=== PATIENT | male | born 1970 | race Caucasian/White ===

== ENCOUNTER 2023-07-10 13:36 | Inpatient (IN) | payer BC ==
[2023-07-10] MEDS ORDERED: HYDROmorphone 0.5 MG/0.5 ML Syringe IVPUSH ONE (14:14)
[2023-07-10] MEDS ORDERED: Sodium Chloride 0.9% 10 ML Syringe FLUSH PRN (14:14)
[2023-07-10 14:32] LABS: BASOPHILS ABSOLUTE AUTO 0.1 K/mm3 (0.0-0.2); BASOPHILS PERCENT AUTO 0.7 % (0.0-1.0); EOSINOPHILS ABSOLUTE AUTO 0.1 K/mm3 (0.0-0.4); EOSINOPHILS PERCENT AUTO 1.2 % (0.0-6.0); HEMATOCRIT 50.7 % (42.0-52.0); HEMOGLOBIN 17.4 gm/dl (14.0-18.0); IMMATURE GRAN ABSOLUTE AUTO 0.04 K/mm3 (0.00-0.05); IMMATURE GRAN PERCENT AUTO 0.5 % (0.0-0.4); LYMPHOCYTES ABSOLUTE AUTO 1.2 K/mm3 (1.0-4.8); LYMPHOCYTES PERCENT AUTO 14.6 % (24.0-44.0); MEAN CORPUSCULAR HEMOGLOBIN 30.6 pg (28.0-32.0); MEAN CORPUSCULAR HGB CONC 34.3 g/dl (32.0-36.0); MEAN CORPUSCULAR VOLUME 89.1 fl (83.0-99.0); MEAN PLATELET VOLUME 9.1 fl (9.4-12.4); MONOCYTES ABSOLUTE AUTO 0.9 K/mm3 (0.0-0.8); MONOCYTES PERCENT AUTO 10.6 % (0.0-8.0); NEUTROPHILS ABSOLUTE AUTO 6.2 K/mm3 (1.8-7.7); NEUTROPHILS PERCENT AUTO 72.4 % (41.0-71.0); PLATELET COUNT,PLT 248 K/mm3 (150-400); RED BLOOD CELL COUNT 5.69 M/mm3 (4.52-5.90)
[2023-07-10 14:53] LABS: ALBUMIN 3.9 g/dl (3.4-5.0); ANION GAP 14.1 (5-15); BUN/CREATININE RATIO 9.2 (14-18); C-REACTIVE PROTEIN 0.7 mg/dL (<1.0); CALCIUM 9.5 mg/dL (8.5-10.1); CREATININE 1.3 mg/dL (0.7-1.3); EST CRCL DRUG DOSING (CG) 78.16 mL/min; POTASSIUM,K 4.1 mEq/L (3.5-5.1); PROTEIN TOTAL,TP 7.9 g/dl (6.4-8.2)
[2023-07-10] MEDS ORDERED: Ondansetron 8 MG in Sodium Chloride 0.9% 50 ML IV PRN (15:56)
[2023-07-10] MEDS ORDERED: Lidocaine 1% 30 ML SDV ONE (15:59)
[2023-07-10] MEDS ORDERED: ceFAZolin 2 GM in Sodium Chloride 0.9% 50 ML IV SCH (16:00)
[2023-07-10] MEDS: Lactated Ringers 1,000 ML IV SCH ×2 (16:10→22:09)
[2023-07-10] MEDS ORDERED: Propofol 200 MG/20 ML SDV ONE (16:19)
[2023-07-10] MEDS ORDERED: fentaNYL 100 MCG/2 ML SDV ONE (16:19)
[2023-07-10] MEDS ORDERED: Lidocaine 1% 5 ML VIAL ONE (16:19)
[2023-07-10] MEDS ORDERED: Midazolam 1 MG/ML 2 ML SDV ONE ×2 (16:19→16:53)
[2023-07-10] MEDS ORDERED: Metoclopramide 10 MG/2 ML SDV ONE (16:36)
[2023-07-10] MEDS ORDERED: ceFAZolin 2 GM Vial ONE (16:36)
[2023-07-10] MEDS: Bupivacaine 0.5%/EPINEPHrine 1:200,000 50 ML MDV ONE (17:04)
[2023-07-10] MEDS ORDERED: Ketorolac 30 MG/ML SDV ONE (17:14)
[2023-07-10] MEDS ORDERED: HYDROmorphone 0.5 MG/0.5 ML Syringe IVPUSH PRN (17:32)
[2023-07-10] MEDS ORDERED: Ondansetron 4 MG/2 ML SDV IVPUSH PRN (17:32)
[2023-07-10] MEDS ORDERED: fentaNYL 100 MCG/2 ML SDV IVPUSH PRN (17:32)
[2023-07-10] MEDS ORDERED: Aspirin 325 MG Tab.EC PO PRN (21:53)
[2023-07-10] MEDS: ceFAZolin 2 GM in Sodium Chloride 0.9% 50 ML IV SCH (22:10)
[2023-07-10] MEDS: HYDROmorphone 0.5 MG/0.5 ML Syringe IVPUSH PRN (22:12)
[2023-07-10] MEDS: Acetaminophen 325 MG Tab PO PRN (22:16)
[2023-07-11] MEDS: HYDROmorphone 0.5 MG/0.5 ML Syringe IVPUSH PRN ×7 (00:56→23:37)
[2023-07-11] MEDS: Ketorolac 30 MG/ML SDV IVPUSH PRN ×2 (04:29→10:57)
[2023-07-11] MEDS: Acetaminophen 325 MG Tab PO PRN ×3 (04:29→19:05)
[2023-07-11] MEDS: ceFAZolin 2 GM in Sodium Chloride 0.9% 50 ML IV SCH ×2 (05:08→14:31)
[2023-07-11 07:25] LABS: BASOPHILS ABSOLUTE AUTO 0.1 K/mm3 (0.0-0.2); BASOPHILS PERCENT AUTO 0.5 % (0.0-1.0); EOSINOPHILS PERCENT AUTO 0.3 % (0.0-6.0); HEMATOCRIT 48.2 % (42.0-52.0); HEMOGLOBIN 16.5 gm/dl (14.0-18.0); IMMATURE GRAN ABSOLUTE AUTO 0.05 K/mm3 (0.00-0.05); IMMATURE GRAN PERCENT AUTO 0.4 % (0.0-0.4); LYMPHOCYTES ABSOLUTE AUTO 0.7 K/mm3 (1.0-4.8); LYMPHOCYTES PERCENT AUTO 6.1 % (24.0-44.0); MEAN CORPUSCULAR HEMOGLOBIN 30.6 pg (28.0-32.0); MEAN CORPUSCULAR HGB CONC 34.2 g/dl (32.0-36.0); MEAN CORPUSCULAR VOLUME 89.4 fl (83.0-99.0); MONOCYTES ABSOLUTE AUTO 0.7 K/mm3 (0.0-0.8); MONOCYTES PERCENT AUTO 5.8 % (0.0-8.0); NEUTROPHILS ABSOLUTE AUTO 10.1 K/mm3 (1.8-7.7); NEUTROPHILS PERCENT AUTO 86.9 % (41.0-71.0); PLATELET COUNT,PLT 218 K/mm3 (150-400); RED BLOOD CELL COUNT 5.39 M/mm3 (4.52-5.90); WHITE BLOOD CELL COUNT,WBC 11.68 K/mm3 (3.9-11.3)
[2023-07-11] MEDS ORDERED: Iopamidol 612 MG/ML 100 ML Bottle IVPUSH ONE (07:38)
[2023-07-11] MEDS ORDERED: Bupivacaine 0.5%/EPINEPHrine 1:200,000 50 ML MDV ONE (16:06)
[2023-07-11] MEDS ORDERED: Bupivacaine 0.25%/EPINEPHrine 1:200,000 30 ML SDV ONE (16:07)
[2023-07-11] MEDS ORDERED: Lidocaine 1% 6 ML ONE (16:31)
[2023-07-11] MEDS ORDERED: HYDROmorphone 0.5 MG/0.5 ML Syringe ONE (16:31)
[2023-07-11] MEDS ORDERED: Propofol 200 MG/20 ML SDV ONE (16:31)
[2023-07-11] MEDS ORDERED: fentaNYL 250 MCG/5 ML SDV ONE (16:32)
[2023-07-11] MEDS ORDERED: Midazolam 1 MG/ML 2 ML SDV ONE (16:34)
[2023-07-11] MEDS ORDERED: Rocuronium 50 MG/5 ML Vial ONE (16:37)
[2023-07-11] MEDS ORDERED: Succinylcholine 200 MG/10 ML MDV ONE (16:37)
[2023-07-11] MEDS ORDERED: Lactated Ringers 1,000 ML IV ONE (17:00)
[2023-07-11] MEDS ORDERED: ceFAZolin 2 GM Vial ONE (17:02)
[2023-07-11] MEDS: Bupivacaine 0.5%/EPINEPHrine 1:200,000 50 ML MDV ONE (17:08)
[2023-07-11] MEDS ORDERED: fentaNYL 100 MCG/2 ML SDV IVPUSH PRN (17:28)
[2023-07-11] MEDS ORDERED: HYDROmorphone 0.5 MG/0.5 ML Syringe IVPUSH PRN (17:28)
[2023-07-11] MEDS ORDERED: Ondansetron 4 MG/2 ML SDV ONE (17:32)
[2023-07-11] MEDS ORDERED: Dexmedetomidine 200 MCG/2 ML SDV ONE (17:39)
[2023-07-11] MEDS: Lactated Ringers 1,000 ML IV SCH ×2 (17:55→19:45)
[2023-07-11] MEDS ORDERED: diphenhydrAMINE 50 MG/ML SDV IVPUSH ONE (18:18)
[2023-07-11] MEDS ORDERED: Acetaminophen 650 MG Supp ONE (18:38)
[2023-07-11] MEDS ORDERED: Promethazine 25 MG in Sodium Chloride 0.9% 50 ML IV ONE (18:40)
[2023-07-11 18:49] LABS: BASOPHILS PERCENT AUTO 0.4 % (0.0-1.0); HEMATOCRIT 54.7 % (42.0-52.0); IMMATURE GRAN ABSOLUTE AUTO 0.04 K/mm3 (0.00-0.05); IMMATURE GRAN PERCENT AUTO 0.4 % (0.0-0.4); LYMPHOCYTES ABSOLUTE AUTO 1.1 K/mm3 (1.0-4.8); LYMPHOCYTES PERCENT AUTO 10.9 % (24.0-44.0); MEAN CORPUSCULAR HEMOGLOBIN 30.7 pg (28.0-32.0); MEAN CORPUSCULAR HGB CONC 33.6 g/dl (32.0-36.0); MEAN CORPUSCULAR VOLUME 91.3 fl (83.0-99.0); MONOCYTES ABSOLUTE AUTO 0.1 K/mm3 (0.0-0.8); MONOCYTES PERCENT AUTO 1.1 % (0.0-8.0); NEUTROPHILS ABSOLUTE AUTO 9.1 K/mm3 (1.8-7.7); NEUTROPHILS PERCENT AUTO 87.2 % (41.0-71.0); PLATELET COUNT,PLT 237 K/mm3 (150-400); RED BLOOD CELL COUNT 5.99 M/mm3 (4.52-5.90); WHITE BLOOD CELL COUNT,WBC 10.48 K/mm3 (3.9-11.3)
[2023-07-11 18:52] LABS: HEMOGLOBIN 18.4 gm/dl (14.0-18.0)
[2023-07-11] MEDS: cefTRIAXone 2 GM in Sodium Chloride 0.9% 100 ML IV SCH (19:34)
[2023-07-11] MEDS ORDERED: Aluminum Hydroxide/Magnesium Hydroxide/Simethicone Susp 30 ML Cup PO PRN (21:33)
[2023-07-11] MEDS: Aspirin 81 MG Tab.Chew PO SCH (21:56)
[2023-07-11] MEDS: Acetaminophen 325 MG Tab PO SCH (23:38)
[2023-07-12] MEDS: Aspirin 81 MG Tab.Chew PO SCH ×2 (01:32→05:40)
[2023-07-12] MEDS: Lactated Ringers 1,000 ML IV SCH ×3 (03:45→22:17)
[2023-07-12] MEDS: HYDROmorphone 0.5 MG/0.5 ML Syringe IVPUSH PRN ×5 (04:05→21:39)
[2023-07-12] MEDS: Acetaminophen 325 MG Tab PO SCH ×5 (04:06→23:58)
[2023-07-12] MEDS ORDERED: Acetaminophen 325 MG Tab PO PRN ×2 (08:21→08:46)
[2023-07-12] MEDS ORDERED: Aspirin 81 MG Tab.Chew PO PRN (08:25)
[2023-07-12] MEDS: Acetaminophen/HYDROcodone 325-10 MG Tab PO PRN ×2 (08:34→14:21)
[2023-07-12] MEDS: Ketorolac 30 MG/ML SDV IVPUSH PRN ×3 (08:52→21:11)
[2023-07-12] MEDS ORDERED: Aspirin 325 MG Tab.EC PO PRN (12:38)
[2023-07-12] MEDS ORDERED: Promethazine 25 MG in Sodium Chloride 0.9% 50 ML IV ONE (14:58)
[2023-07-12] MEDS ORDERED: Famotidine 20 MG/2 ML SDV IVPUSH SCH (15:00)
[2023-07-12] MEDS ORDERED: Ondansetron 8 MG in Sodium Chloride 0.9% 50 ML IV PRN (15:02)
[2023-07-12] MEDS ORDERED: Promethazine 25 MG/ML SDV ONE (15:12)
[2023-07-12] MEDS: Famotidine 20 MG/2 ML SDV IVPUSH SCH (15:24)
[2023-07-12] MEDS: Aspirin 325 MG Tab.EC PO SCH ×3 (15:35→23:58)
[2023-07-12] MEDS: cefTRIAXone 2 GM in Sodium Chloride 0.9% 100 ML IV SCH (18:05)
[2023-07-13] MEDS: Aspirin 325 MG Tab.EC PO SCH ×6 (04:04→22:16)
[2023-07-13] MEDS: Acetaminophen 325 MG Tab PO SCH ×6 (04:04→22:15)
[2023-07-13 05:48] LABS: BUN/CREATININE RATIO 9.2 (14-18); CALCIUM 8.2 mg/dL (8.5-10.1); CREATININE 1.2 mg/dL (0.7-1.3); EST CRCL DRUG DOSING (CG) 84.67 mL/min
[2023-07-13 05:52] LABS: BASOPHILS ABSOLUTE AUTO 0.1 K/mm3 (0.0-0.2); BASOPHILS PERCENT AUTO 0.9 % (0.0-1.0); EOSINOPHILS ABSOLUTE AUTO 0.1 K/mm3 (0.0-0.4); EOSINOPHILS PERCENT AUTO 2.1 % (0.0-6.0); HEMATOCRIT 45.7 % (42.0-52.0); IMMATURE GRAN ABSOLUTE AUTO 0.05 K/mm3 (0.00-0.05); IMMATURE GRAN PERCENT AUTO 0.7 % (0.0-0.4); LYMPHOCYTES ABSOLUTE AUTO 1.1 K/mm3 (1.0-4.8); LYMPHOCYTES PERCENT AUTO 15.7 % (24.0-44.0); MEAN CORPUSCULAR HGB CONC 34.6 g/dl (32.0-36.0); MEAN CORPUSCULAR VOLUME 89.8 fl (83.0-99.0); MEAN PLATELET VOLUME 9.8 fl (9.4-12.4); MONOCYTES ABSOLUTE AUTO 0.8 K/mm3 (0.0-0.8); MONOCYTES PERCENT AUTO 12.4 % (0.0-8.0); NEUTROPHILS ABSOLUTE AUTO 4.6 K/mm3 (1.8-7.7); NEUTROPHILS PERCENT AUTO 68.2 % (41.0-71.0); PLATELET COUNT,PLT 190 K/mm3 (150-400); RED BLOOD CELL COUNT 5.09 M/mm3 (4.52-5.90); WHITE BLOOD CELL COUNT,WBC 6.77 K/mm3 (3.9-11.3)
[2023-07-13 05:54] LABS: HEMOGLOBIN 15.8 gm/dl (14.0-18.0)
[2023-07-13] MEDS: Lactated Ringers 1,000 ML IV SCH (06:20)
[2023-07-13] MEDS: Famotidine 20 MG/2 ML SDV IVPUSH SCH (08:04)
[2023-07-13] MEDS ORDERED: Acetaminophen/HYDROcodone 325-5 MG Tab PO PRN (09:55)
[2023-07-13] MEDS: cefTRIAXone 2 GM in Sodium Chloride 0.9% 100 ML IV SCH (18:41)
[2023-07-13] MEDS: Ketorolac 30 MG/ML SDV IVPUSH PRN (18:45)
[2023-07-14] MEDS: Aspirin 325 MG Tab.EC PO SCH ×3 (03:17→10:11)
[2023-07-14] MEDS: Acetaminophen 325 MG Tab PO SCH ×3 (03:17→10:11)
[2023-07-14] MEDS: Famotidine 20 MG/2 ML SDV IVPUSH SCH (08:58)
[2023-07-14] MEDS ORDERED: Levofloxacin 750 MG Tab PO SCH (10:00)
== END 2023-07-14 10:33 | disposition home or self-care (01) | DRG 254 ==
LOC: JD.ED 13:36 → JD.SDS 15:43 → JD.MS 18:27 → JD.SDS 07-11 10:15 → JD.MS 07-11 11:05 → JD.ICU 07-11 19:31
PROVIDERS: ADMIT Specialist; ATTEND Specialist
PROC: 0D9P3ZZ Drainage of Rectum, Percutaneous Approach (ICD-10-PCS; principal; 2023-07-10)
PROC: 0D9P3ZZ Drainage of Rectum, Percutaneous Approach (ICD-10-PCS; 2023-07-11)
DX: K61.1 Rectal abscess (principal); K61.4 Intrasphincteric abscess; R78.81 Bacteremia; E66.9 Obesity, unspecified; F17.210 Nicotine dependence, cigarettes, uncomplicated; Z79.899 Other long term (current) drug therapy; Z68.33 Body mass index [BMI] 33.0-33.9, adult; Z90.49 Acquired absence of other specified parts of digestive tract; Z98.890 Other specified postprocedural states
CPT/HCPCS: 36415; 72193; 72193-26; 76872; 80048; 80053; 85025; 86140; 87040; 87070; 87075; 87077; 87154; 87186; 87205; 96374; 99284-25; A9270-GY; J0330; J0690; J0696; J1170; J1885; J2250; J2405; J2550; J2704; J2765; J3010; J3490; J7120; Q9967